=== PATIENT | female | born 1995 ===

== ENCOUNTER 2017-02-08 10:58 | Inpatient (IN) | payer SELFPAY ==
[2017-02-08] MEDS ORDERED: BETAMETHASONE IM SYRINGE IM ONE (11:30)
[2017-02-08] MEDS ORDERED: GENTAMICIN 100 MG/NACL 100 ML IV SCH (11:45)
[2017-02-08] MEDS ORDERED: MAGNESIUM SULF 4 GM/WATER 100 ML IV ONE (11:54)
[2017-02-08] MEDS ORDERED: CALCIUM GLUC 10% 1 GM/10 ML VIAL IVP PRN (11:54)
[2017-02-08] MEDS ORDERED: Mag Sulf 500 ML IV SCH (12:00)
[2017-02-08] MEDS ORDERED: AMPICILLIN SODIUM 2 GM in NS 100 ML IV SCH ×2 (12:00→18:00)
[2017-02-08 12:07] LABS: % IMMATURE GRANULYOCYTES 1.3 % (0.0-1.1); ABSOLUTE IMMATURE GRANULOCYTES 0.22 10^3/uL (0.00-0.10); ADD DIFF? NO; ADD MORPH? NO; ADD SCAN? NO; ATYPICAL LYMPHOCYTE FLAG 10 (0-99); FRAGMENT RBC FLAG 0 (0-99); HEMATOCRIT 31.7 % (38.0-47.0); HEMOGLOBIN 10.4 g/dL (12.6-16.3); LEFT SHIFT FLG 10 (0-99); LIPEMIA HEMOLYSIS FLAG 80 (0-99); MEAN CELL HEMOGLOBIN 31.1 pg (27.9-34.1); MEAN CELL HEMOGLOBIN CONCENTR. 32.8 g/dL (32.4-36.7); MEAN CELL VOLUME 94.9 fL (81.5-99.8); MEAN PLATELET VOLUME 12.6 fL (8.7-11.7); PLATELET CLUMPS FLAG 10 (0-99); PLATELET COUNT 223 10^3/uL (150-400); RED BLOOD CELL COUNT 3.34 10^6/uL (4.18-5.33); RED CELL DISTRIBUTION WIDTH 14.3 % (11.5-15.2)
[2017-02-08 12:25] LABS: ALANINE AMINOTRANSFERASE 139 IU/L (9-52); ALBUMIN 3.9 g/dL (3.5-5.0); ALKALINE PHOSPHATASE 206 IU/L (38-126); ANION GAP 13 mEq/L (8-16); ASPARTATE AMINOTRANSFERASE 135 IU/L (14-46); CALCIUM 9.4 mg/dL (8.5-10.4); CARBON DIOXIDE 25 mEq/l (22-31); CHLORIDE 98 mEq/L (97-110); CREATININE 0.7 mg/dL (0.6-1.0); GLOMERULAR FILTRATION RATE > 60; GLUCOSE 99 mg/dL (70-100); SODIUM 136 mEq/L (134-144); TOTAL PROTEIN 7.6 g/dL (6.3-8.2)
--- NOTE | 2017-02-08 12:52 | GHP ---
[f rep st] HISTORY AND PHYSICAL DATE OF ADMISSION: 02/08/2017 ADMISSION DIAGNOSIS: Intrauterine at 26 and 0/7 weeks' gestation with premature rupture of membranes. HISTORY OF PRESENT ILLNESS: The patient is a 21-year-old, 1, para 0, with a last menstrual period of August 10, 2016, and an EDC of May 17, 2017, estimated to be 26 and 0/7 weeks' gestation. She reports her dates confirmed by an ultrasound at some point in December. Patient has had limited care. She found out she was at approximately 20 weeks gestation. She had limited care in [place] with an ultrasound and some lab work. She said she was taking some vitamins and she decided that she wished to terminate this . She was too far along to terminate the in the [place] of [place] and she made an appointment to terminate her at [facility]. She had an appointment later today on , ; however, she had premature rupture of the membranes on 2016. She presented to a hospital in [place] and was diagnosed with premature rupture of membranes. Baby was in cephalic presentation. She was admitted, attempted to start on IV antibiotics and steroids, the patient left the hospital against medical advice. She again presented to another clinic in [place] and was told that she was too far along to terminate the , and so she and her family members drove from [place] to [place] and arrived this morning. She arrived at the [facility] and was found to have active contractions every 5 to 8 minutes. She was assessed and found to be, indeed, ruptured with meconium stained fluid. Had positive heart tones. Cervix was 3-4, 80%, and vertex. The physician at the [facility] did a bedside ultrasound that revealed a biparietal diameter consistent with 27 weeks and femur length consistent with 29 weeks; however, dates are consistent with 26 weeks. She was transferred by ambulance to [facility] because they felt that the delivery was imminent. On our evaluation today, patient is afebrile. Vital signs are stable. heart tones are in the 130s to 140s, moderate variability, variable decelerations, and some spontaneous accelerations. She is sage every 5- 8 minutes. Cervix is still 3 cm, 80%, -2. She is grossly ruptured for meconium stained fluid, possible purulent fluid. We discussed treatment options with the patient. Patient still wished to try to terminate the ; however, the physician from [facility] felt it was not safe given her premature rupture of membranes and labor. Baby could deliver alive after an injection with digoxin and that is illegal and he feels that it is not prudent given her possibility of infection. Therefore, patient agreed to stay for IV antibiotics, betamethasone , and transfer to [facility] for care of this premature baby. OBSTETRICAL/GYNECOLOGIC HISTORY: The patient denies any obstetrical history. This is her first . She also denies any gynecological problems. She has regular periods. Her menarche was at age 11. Lasts 6 days. They are every 30 days. She says her bleeding is heavy. She has cramps. She was not using any contraception at the time baby was conceived. PAST MEDICAL/SURGICAL HISTORY: She denies any significant past medical history or surgical history. She does have psychiatric conditions. She had reported tardive dyskinesia with 1 psychiatric med, which she cannot remember the name of. MEDICATIONS: She is not on any current medications, except some vitamins. SOCIAL HISTORY: She smokes a half a pack a day. Denies alcohol use, recreational drug use. She used opiates twice a day approximately 4 times a week. Denies IV drug use. She has a significant other, who was with her as they are in a relationship. FAMILY HISTORY: Noncontributory. REVIEW OF SYSTEMS: Negative, except for as pertinent in HPI as above. PHYSICAL EXAMINATION: VITAL SIGNS: Currently, the patient is afebrile. Temperature is 37, blood pressure stable. heart tones are 130s to 140s, moderate variability, positive accelerations. PELVIC: Sage every 5-8 minutes. Cervix is 3, 80%, minus 2, and cephalic , and she is grossly ruptured. ASSESSMENT AND PLAN: A 21-year-old, 1, para 0, at 26 and 0/7 weeks' gestation with premature rupture of membranes with meconium, probable chorioamnionitis. We are arranging transportation to [facility] for NICU care of this baby. We have given her a dose of betamethasone, started her on ampicillin, gentamicin, and clindamycin, as well as magnesium sulfate for neurologic maturity. /[id number]/MODL MTDD
--- NOTE | 2017-02-08 13:07 | OBPROG ---
Labor Progress Note Assessment/Plan: Assessment: 21 y/o @ 26 weeks with PPROM , and likely chorio in PTL Plan: D/c MgSo4 bolus now, O2, Left decubitus position and other recess measures. We are expecting EMS soon for transfer to [facility]. 02/08/17 13:07 Subjective/Intrapartum Course: 02/08/17 13:01 Called to assess patient secondary to decreased heart tones 60-80's during the MgSo4 bolus. She denies symptoms, and she is feeling less contractions. Objective: 02/08/17 11:00 02/08/17 11:00 Total Bilirubin 1.0 mg/dL (0.1-1.4) 02/08/17 11:00 AST 135 IU/L (14-46) H 02/08/17 11:00 ALT 139 IU/L (9-52) H 02/08/17 11:00 - SVE Dilation (cm): 3 Effacement (%): 80 Station: -1 Membranes: SROM Amniotic Fluid Color: Thick Meconium - Contraction Pattern Assessment Current Contraction Pattern: Irregular (Q 5-8) - FHR Assessment Parsons FHR (bpm): 110 FHR Pattern Variability: Moderate FHR Category: 2 (baby had prolonged deceleration to 60-80's mod variability) ICD10 Worksheet Patient Problems: Problems Problem Status Onset Current with history of pre-term labor Acute - ICD10 Problem Qualifiers (1) Current with history of pre-term labor
[2017-02-08] MEDS ORDERED: CLINDAMYCIN 900 MG/DEXTROSE 50 ML IV SCH (14:00)
--- NOTE | 2017-02-08 14:20 | OBPROG ---
Labor Progress Note Assessment/Plan: Assessment: 21 y/o @ 26 weeks with PPROM , and likely chorio in PTL Plan: Pt is signing out AMA and says she will travel back to [place] either by car or try to get a flight to get home quicker. We explained all of the possible risks to her health and the baby. We discussed we will take care of her if she decided to come back to [facility] at any time regardless of the status. We consulted with Dr. Oj VILLANUEVA about the plan of care and the patient's decision to leave [facility]. Patient was counseled by me and Nasrin Brown CNM as well as multiple RN from labor and delivery. 02/08/17 13:07 02/08/17 14:21 Subjective/Intrapartum Course: 02/08/17 13:01 Called to assess patient secondary to decreased heart tones 60-80's during the MgSo4 bolus. She denies symptoms, and she is feeling less contractions. 02/08/17 13:58 Pt is now expressing the desire to leave the hospital AMA, refuse transfer to [facility] and leave with her boyfriend and family to travel back to [place], [place]. She says she wants to be home with her family and if she has to have this baby and not have her , she wants to have the support of her family. She says her mother and sister will take and care for the baby. She says she understands the risks of leaving [facility] and declining treatment for her presumed chorioamnionitis include emergency delivery of an extreme pre-term in the car on the road to [place] with probable for the baby and severe infection, sepsis which could lead to permanent infertility or for her. She feels she will be ok as she travels home and she doesn't want to be her in [place] if she has to be in the hospital and have the baby. She currently is denying contractions, continues to have LOF brown, green and denies fever/chills or abdominal pain. She is traveling with her boyfriend and [id number] and they are supportive and will be with her to get her back home. Objective: 02/08/17 11:00 02/08/17 11:00 Total Bilirubin 1.0 mg/dL (0.1-1.4) 02/08/17 11:00 AST 135 IU/L (14-46) H 02/08/17 11:00 ALT 139 IU/L (9-52) H 02/08/17 11:00 - SVE Dilation (cm): 3 Effacement (%): 80 Station: -2 Membranes: SROM Amniotic Fluid Color: Thick Meconium - Contraction Pattern Assessment Current Contraction Pattern: Irregular (Q 5-8) - Physical Exam General Appearance: WD/WN, alert, no apparent distress Neck: non-tender, full range of motion, supple Respiratory: chest non-tender, lungs clear, normal breath sounds Cardiac/Chest: regular rate, rhythm Abdomen: normal bowel sounds ICD10 Worksheet Patient Problems: Problems Problem Status Onset Current with history of pre-term labor Acute - ICD10 Problem Qualifiers (1) Current with history of pre-term labor
== END 2017-02-08 14:40 | disposition short-term general hospital (02) | DRG 778 ==
LOC: FLD 10:58
PROVIDERS: ADMIT Obstetrics & Gynecology; ATTEND Obstetrics & Gynecology
DX: O60.02 Preterm labor without delivery, second trimester (principal); Z3A.26 26 weeks gestation of pregnancy; O99.332 Smoking (tobacco) complicating pregnancy, second trimester; F17.210 Nicotine dependence, cigarettes, uncomplicated
CPT/HCPCS: J0290; J0702; J3475